=== PATIENT | male | born 1990 | race Caucasian/White ===

== ENCOUNTER 2024-08-10 23:42 | Emergency (ER) | payer OTHER ==
[~2024-08-10] VITALS: Ht 180.3 cm; Wt 113.4 kg
[2024-08-10] MEDS ORDERED: Penicillin V Potassium 250 MG Tab PO ONE (23:50)
[2024-08-10] MEDS ORDERED: Ibuprofen 600 MG Tab PO ONE (23:50)
[2024-08-10] MEDS ORDERED: Veetids 500500 MG PO (23:50)
[2024-08-10] MEDS ORDERED: IBU600 MG PO (23:50)
== END 2024-08-11 00:02 | disposition home or self-care (01) ==
LOC: ER 23:42
DX: K08.89 Other specified disorders of teeth and supporting structures (principal)
CPT/HCPCS: 99282; A9270